=== PATIENT | female | born 1955 | race Caucasian/White ===

== ENCOUNTER 2018-10-12 07:28 | Emergency (ER) | payer BC, OTHER ==
--- NOTE | 2018-10-12 07:48 | UC ---
Respiratory Complaint HPI - HPI Summary HPI Summary: Patient is 63 year old female , who present today to the urgent care with congestion and headache for past 2 months intermittently . Worse that her headache is around her ears and she feels fullness in her ears bilaterally. Feels her head is throbbin when laying down - states started 2 months ago, goes away after being awake for 2 hours, comes back at night, when trying to sleep. Pt states has gotten progressively worse. Now she has noticed that there is associated shortness of breath and reports cough productive of some phlegm intermittently Denies any fever, chills, chest pain. Denies any abdominal pain , nausea or vomiting , diarrhea or constipation. She reports that she has a history of asthma and bronchitis in the past but she does not take any inhalers Also reports that there is swelling or mass on the left lower aspect of her neck that has been going on there for 2 years. She feels that it has increased in size. But was evaluated by her primary care in past Patient tried over the counter medication decongestant with some relief - History of Current Complaint Stated Complaint: CONGESTION Time Seen by Provider: 10/12/18 07:47 Hx Obtained From: Patient - Allergies/Home Medications Allergies/Adverse Reactions: Allergies Allergy/AdvReac Type Severity Reaction Status Date / Time No Known Allergies Allergy Verified 10/12/18 07:38 Home Medications: Home Medications NK [No Home Medications Reported] 10/12/18 [History Confirmed 10/12/18] PMH/Surg Hx/FS Hx/Imm Hx - Additional Past Medical History Additional PMH: Asthma, she does not take any inhalers Bronchitis Every day smoker- half to 1 pack per day Previously Healthy: Yes Review of Systems All Other Systems Reviewed And Are Negative: Yes Constitutional: Positive: Fatigue Skin: Positive: Negative Eyes: Positive: Negative ENT: Positive: Ear Ache, Sinus Congestion, Sinus Pain/Tenderness Respiratory: Positive: Shortness Of Breath - Intermittent, Cough - Intermittently productive Cardiovascular: Positive: Negative Gastrointestinal: Positive: Negative Genitourinary: Positive: Negative Motor: Positive: Negative Neurovascular: Positive: Negative Neurological: Positive: Headache - Especially when she lays down Psychological: Positive: Negative Is Patient Immunocompromised?: No Physical Exam - Summary Physical Exam Summary: Physical Exam: Const: Appears well. No signs of apparent distress present. Alert and oriented x 3. Musculo: Walks with a normal gait. Head/Face: Atraumatic, normocephalic on inspection. Eyes: EOMI and PERRLA in both eyes. Conjunctivae clear. No discharge noted ENT: Hearing normal, TM normal appearing bilaterally . No pharyngeal erythema or exudates No lymphadenopathy noted. Tenderness is noted at the left maxillary sinus. There is approximately 5 cm into 5 cm size supraclavicular mass , nonerythematous nontender on palpation. Respiratory: Decreased air entry in bilateral lower lobes. Air entry appropriate in the upper / middle lobes bilaterally. Respirations are unlabored. Lungs no wheezing , rhonchi or rales noted . CVS: Regular rate and Rhythm, S1S2 normal , no murmurs identified. Extremities: Peripheral circulation is grossly normal. Pulses 2+ Abdomen : Soft non tender , nondistended , Bowel sounds present . No guarding , rebound tenderness or rigidity noted. Skin: No lesions or rash located on the upper extremities or on the lower extremities. Neuro: Cranial nerves II to XII intact, motor and sensory intact. DTR Intact bilaterally. Mood is normal. Affect is normal. Triage Information Reviewed: Yes Vital Signs Reviewed: Yes Diagnostic Evaluation - Radiology Radiology Interpretation Completed By: Radiologist - chest x-ray:HYPERINFLATION , CONSISTENT WITH COPD. NO ACTIVE CARDIOPULMONARY DISEASE. Respiratory Course/Dx - Course Course Of Treatment: During the visit today, , on initial testing her pulse ox was at 85, she was put on 2 L of oxygen and it increased to 92% but was desatting to high 80s . She was given 1 neb treatment with albuterol and ipratropium and she felt slightly better but her oxygen saturation was 89% on 2 L. Chest x-ray done: HYPERINFLATION, CONSISTENT WITH COPD. NO ACTIVE CARDIOPULMONARY DISEASE. We increase it to 4 L, with her saturation at 97% So oxygen was decreased to 3 L at which her saturation was between 88-92. We discussed the findings and further plan. I recommended her to go to ER in ambulance given her need for oxygen and the risk for respiratory failure. She verbalizes understanding of his potential diagnosis and risks. I strongly advised her to be transferred via ambulance to ER and further evaluation and treatment there. She refused to go to the ED via ambulance but her will drive her promptly to ER . Patient signed out AMA. Report called to the ER provider , Dalila at [facility], advised provider of the history, physical examination, and duration of illness and imaging so far and the need for definitive management. Her vitals were stable at the time of discharge. Patient expressed understanding . - Differential Dx/Diagnosis Provider Diagnosis: COPD exacerbation, Sinusitis, Mass in neck Discharge - Sign-Out/Discharge Documenting (check all that apply): Patient Departure All imaging exams completed and their final reports reviewed: Yes - Discharge Plan Condition: Stable Disposition: HOME-RECOMMEND TO ED Patient Education Materials: COPD (Chronic Obstructive Pulmonary Disease) (ED) Referrals: Whit Ferguson MD [Primary Care Provider] - 1 Week Additional Instructions: Recommendation to go to ER for definitive management via ambulance but patient declined and her will drive her to the ER. She signed the AMA paperwork understanding certain risks and her diagnosis. Report was called to ER Patient's blood pressure slightly high in Urgent care today , plan follow up with PCP for better control - Billing Disposition and Condition Condition: STABLE Disposition: Home-Recommend to ED
[2018-10-12 07:58] VITALS: BP 182/93
[2018-10-12] MEDS ORDERED: Albuterol/Ipratropium NEB.SOL* Albuterol 2.5 MG/Ipratropium 0.5 MG 3 ML INH ONE (07:59)
[2018-10-12] MEDS ORDERED: Albuterol (2.5 MG) 0.5 % CONC 2.5 MG/0.5 ML NEB.SOLN (ICU and ED only) INH ONE (08:03)
[2018-10-12] MEDS ORDERED: Ipratropium 0.5MG/2.5ML NEB* 0.5 MG/2.5 ML NEB.SOLN INH ONE (08:04)
[2018-10-12] MEDS ORDERED: Albuterol 2.5 MG/3 ML NEB.SOL* (0.083%) INH ONE ×2 (08:08→08:15)
== END 2018-10-12 09:15 | disposition home health service (06) ==
LOC: UCEAST 07:28
DX: J44.1 Chronic obstructive pulmonary disease with (acute) exacerbation (principal); R22.1 Localized swelling, mass and lump, neck; F17.210 Nicotine dependence, cigarettes, uncomplicated; J45.909 Unspecified asthma, uncomplicated; J32.9 Chronic sinusitis, unspecified
CPT/HCPCS: 71046; 99202; G0463; J7611

== ENCOUNTER 2018-10-12 09:34 | Observation (INO) | payer OTHER ==
--- NOTE | 2018-10-12 09:52 | ED ---
Shortness of Breath - HPI Summary HPI Summary: Pt is a 63 y/o female who presents to the ED c/o SOB. She was sent from the for hypoxia and severe headache. A CXR performed there revealed hyperinflation, and her O2 sat was 87%. Pt was given oxygen and a nebulizer while at . Pt has had intermittent congestion, cough, sore throat, rhinorrhea, and sleep disturbance for the past 3 months. For the past 2 weeks, shes had a throbbing sensation in her head when lying down. Pt also c/o LE edema, but denies any CP or nausea. Recently the phlegm she coughs up has turned from clear to yellow. Pt smokes half to a full ppd. She has only had 2 cigarettes today so far. Pts BP while in room is 177/96, but she denies taking any BP medications. She hasn t been to her PCP in a while. PMHx asthma. - History of Current Complaint Chief Complaint: EDShortnessOfBreath Time Seen by Provider: 10/12/18 09:47 Hx Obtained From: Patient Onset/Duration: Gradual Onset, Lasting Weeks - 3 months, Worse Since Timing: Constant Aggrevating Factors: Recumbent Position Alleviating Factors: Oxygen Associated Signs & Symptoms: Cough (Productive), Nasal Congestion, Edema - Allergy/Home Medications Allergies/Adverse Reactions: Allergies Allergy/AdvReac Type Severity Reaction Status Date / Time No Known Allergies Allergy Verified 10/12/18 09:40 PMH/Surg Hx/FS Hx/Imm Hx Endocrine/Hematology History: Denies: Hx Diabetes Respiratory History: Reports: Hx Asthma, Other Respiratory Problems/Disorders - Bronchitis - Cancer History Hx Chemotherapy: No Hx Radiation Therapy: No - Surgical History Surgery Procedure, Year, and Place: tubal ligation Infectious Disease History: No Infectious Disease History: Denies: Traveled Outside the [place] in Last 30 Days - Family History Known Family History: Positive: Respiratory Disease - COPD - Social History Alcohol Use: None Hx Substance Use: No Substance Use Type: Reports: None Hx Tobacco Use: Yes Smoking Status (MU): Heavy Every Day Tobacco Smoker Amount Used/How Often: 1/2 - 1PPD Review of Systems Positive: Other - sleep disturbance Positive: Sore Throat, Nasal Discharge, Other - congestion Negative: Chest Pain Positive: Shortness Of Breath, Cough Negative: Nausea Positive: Edema Positive: Headache All Other Systems Reviewed And Are Negative: Yes Physical Exam - Summary Physical Exam Summary: Appearance: Well appearing, no pain distress Skin: warm, dry, reflects adequate perfusion Head/face: normal Eyes: EOMI, [place] ENT: mucous membranes moist, no nasal discharge Neck: supple, non-tender Respiratory: CTA, breath sounds diminished R>L Cardiovascular: RRR, pulses symmetrical, trace edema in LE Abdomen: non-tender, soft Bowel Sounds: present Musculoskeletal: normal, strength/ROM intact Neuro: normal, sensory motor intact, A&Ox3 Triage Information Reviewed: Yes Vital Signs On Initial Exam: Initial Vitals Temp Pulse Resp BP Pulse Ox 98.0 F 78 18 169/77 87 10/12/18 09:36 10/12/18 09:36 10/12/18 09:36 10/12/18 09:36 10/12/18 09:36 Vital Signs Reviewed: Yes Diagnostics - Vital Signs Vital Signs Temp Pulse Resp BP Pulse Ox 10/12/18 09:36 98.0 F 78 18 169/77 87 - Laboratory Result Diagrams: 10/12/18 10:03 10/12/18 10:03 Lab Statement: Any lab studies that have been ordered have been reviewed, and results considered in the medical decision making process. - EKG 9:57 Cardiac Rate: NL - 64 bpm EKG Rhythm: Sinus Rhythm ST Segment: Normal Summary of EKG Findings: Nl axis, nl intervals Course/Dx - Course Course Of Treatment: Nurse's note reviewed. Heavy smoker presents with hypoxia and productive cough. O2 sat kneader 87%. Patient was placed on oxygen and given multiple breathing treatments. An ABG was drawn. X-ray was done in the urgent care which showed hyperinflation. The patient was started on IV antibiotics, steroids and admitted to the hospital for further evaluation and treatment. - Diagnoses Differential Diagnosis/HQI/PQRI: Positive: Bronchitis, COPD Exacerbation, Pneumonia Provider Diagnoses: Acute exacerbation of chronic obstructive pulmonary disease (COPD), Hypoxia, Tobacco abuse - Physician Notifications Discussed Care of Patient With: Jennifer Arambula Time Discussed With Above Provider: 11:05 Instructed by Provider To: Admit As Inpatient Discharge - Sign-Out/Discharge Documenting (check all that apply): Patient Departure - Admit - Discharge Plan Condition: Fair Disposition: ADMITTED TO [facility] - Billing Disposition and Condition Condition: FAIR Disposition: Admitted to [facility] - Attestation Statements Document Initiated by Kraigibabhay: Yes Documenting Scribe: Vee Duncan Provider For Whom Scribe is Documenting (Include Credential): Bob Leija MD Scribe Attestation: Vee Arora, scribed for Bob Leija MD on 10/12/18 at 1414. Scribe Documentation Reviewed: Yes Provider Attestation: The documentation as recorded by the Vee mcmullen accurately reflects the service I personally performed and the decisions made by , Bob Leija MD Status of Scribe Document: Viewed
[2018-10-12] MEDS ORDERED: NS 0.9% 1000 ML* 1,000 ML IV ONE (09:53)
[2018-10-12] MEDS ORDERED: Levofloxacin 750 MG IVPREMIX(* 750 MG/150 ML BAG IVPB ONE (09:54)
[2018-10-12] MEDS ORDERED: Albuterol/Ipratropium NEB.SOL* Albuterol 2.5 MG/Ipratropium 0.5 MG 3 ML INH ONE (09:54)
[2018-10-12] MEDS ORDERED: methylPREDNISolone 125 MG* 2 ML VIAL IV ONE (09:54)
[2018-10-12 10:21] LABS: ABS Basophils 0 10^3/ul (0-0.2); ABS Eosinophils 0 10^3/ul (0-0.6); ABS Lymphocytes 1.5 10^3/ul (1.0-4.8); ABS Monocytes 0.5 10^3/ul (0-0.8); ABS Neutrophils 4.2 10^3/ul (1.5-7.7); ABS Nucleated RBC 0 10^3/ul; Eosinophil % 0.5 %; Hematocrit 46 % (35-47); Hemoglobin 15.2 g/dl (12.0-16.0); Lymphocyte % 24.5 %; Mean Corpuscular HGB Conc 33 g/dl (31-36); Mean Corpuscular Hemoglobin 31 pg (27-31); Mean Corpuscular Volume 93 fL (80-97); Mean Platelet Volume 7.5 fL (7.4-10.4); Nucleated Red Blood Cells % 0; Platelet Count 237 10^3/ul (150-450); Red Blood Count 4.88 10^6/ul (4.00-5.40); Red Cell Distribution Width 14 % (10.5-15); White Blood Count 6.3 10^3/ul (3.5-10.8)
[2018-10-12 10:34] LABS: EGFR Non-African American 97.2 (>60)
[2018-10-12 10:39] LABS: INR 0.94 (0.77-1.02)
[2018-10-12] MEDS ORDERED: Acetaminophen TAB* 325 MG PO PRN (12:02)
[2018-10-12] MEDS ORDERED: Al Hydrox/Mg Hydrox/Simet LIQ* 30 ML UDC PO PRN (12:02)
[2018-10-12] MEDS ORDERED: Albuterol 2.5 MG/3 ML NEB.SOL* (0.083%) INH PRN (12:02)
[2018-10-12] MEDS ORDERED: Albuterol HFA INHALER* 8 gm MDI INH PRN (12:07)
[2018-10-12] MEDS ORDERED: Enoxaparin(*) 40 MG/0.4 ML SYR SUBCUT SCH (13:00)
[2018-10-12] MEDS ORDERED: Iohexol 350* (CONTRAST) 500 ML MDV IV ONE (13:08)
--- NOTE | 2018-10-12 14:20 | HP ---
CC: Dr. Whit Ferguson * HISTORY AND PHYSICAL: DATE OF ADMISSION: 10/12/18 PROVIDER: Jessica Cortez NP. ATTENDING PHYSICIAN WHILE IN THE HOSPITAL: Dr. Jennifer Arambula * (dictated by Jessica Cortez NP). CHIEF COMPLAINT: 1. Shortness of breath. 2. Cough. HISTORY OF PRESENT ILLNESS: Ms. Reynolds is a 63-year-old female with no significant past medical history, who was transferred from Urgent Care due to shortness of breath and hypoxia. The patient was found to have O2 saturation at Urgent Care of 87%, so she was sent to the emergency room for further evaluation of her hypoxia. The patient reports that she has been experiencing shortness of breath on and off since May. She reports that while lying down on her back, she has increased shortness of breath and palpitations in her chest. She does report that she wakes with palpitations during the night and that sitting up for a couple of hours improves her breathing and symptoms. Patient reports that she usually sleeps on 1 pillow at night and lately has been sleeping on 2 pillows, but reports that this is not helping her symptoms. She also reports that she has been having heart and cold chills on and off for a while, unable to determine the amount of time. She does report that she has a chronic cough with clear secretions, but recently has changed to yellow and increased amount of secretions. Due to her increased shortness of breath, she presented to Urgent Care and then was transferred to the emergency room after she was found to be hypoxic. While in the emergency room, she had routine lab work drawn. She was given Solu - Medrol 125 and Levaquin 750 mg and breathing treatment. Patient reports that after receiving these treatments, her breathing feels better and she feels less short of breath. Due to her hypoxia and shortness of breath, we were asked to see and evaluate her for admission. PAST MEDICAL HISTORY: Significant for chronic tobacco abuse. PAST SURGICAL HISTORY: Tubal ligation. HOME MEDICATIONS: 1. She takes fish oil. 2. Cranberry. 3. Calcium. 4. Probiotic. ALLERGIES TO MEDICATIONS: None. FAMILY HISTORY: Mother with a history of heart disease, unknown type. No reported history of diabetes in the family. Father with lung cancer, brother with lung and bladder cancer. SOCIAL HISTORY: The patient smokes between a half to 3-1/4-pack a day for 40- plus years. She denies any alcohol use. Does report daily marijuana use. She has . She lives with her . Surrogate decision maker is her . She is a full code. REVIEW OF SYSTEMS: She does report hot and cold chills. She denies any loss of appetite. Denies chest pain. She does report heart palpitations. She does report dependent edema after working all day. Denies any chest pain. Does report cough that is now productive with yellow secretions and increased from her baseline. Denies any hemoptysis. She does report increased shortness of breath. Denies any nausea, vomiting or diarrhea. Denies any abdominal pain. Denies any gross hematuria or dysuria. Denies any focal weakness or sensory loss. Denies any visual complaints. Denies any dysphagia. Denies any arthralgias or myalgias. Denies any rashes, lesions, psychosis or anxiety. PHYSICAL EXAMINATION GENERAL: At this time, Ms. Reynolds is sitting on the stretcher in the emergency room. She appears to be in mild respiratory distress. Her color is pink. She is alert and oriented x3. HEENT: Head is atraumatic, normocephalic. Eyes: EOMs are intact. Sclerae are anicteric and not pale. Oral mucosa appear to be moist. NECK: Supple. LUNGS: Diminished throughout bilaterally, with a few scattered expiratory wheezes. CARDIAC: S1 and S2. Regular rate and rhythm. No murmurs, rubs or gallops. ABDOMEN: Soft and nontender. Bowel sounds are present x4. EXTREMITIES: Pedal pulses are +2 bilaterally. There is no pitting edema noted to the lower extremities. No calf tenderness bilaterally. NEUROLOGIC: She is awake, alert, and oriented x3. Speech is clear. Thought process is intact. No gross focal deficits noted. SKIN: Intact. LABORATORY DATA AND DIAGNOSTIC STUDIES: WBCs are 6.3, RBCs 4.88, hemoglobin 15.2, hematocrit was 46, platelet count was 237. INR was 0.94. ABG: pH of 7.35, pCO2 was 61, pO2 was 77, HCO3 was 29.1, O2 saturation 96%. Sodium was 140 , potassium 4.0, chloride 102, carbon dioxide was 34, anion gap was 4, BUN 13, creatinine 0.62. Glucose 139, lactic acid 0.9, calcium 9.0, AST was 22, ALT was 58. C- reactive protein was 30.43. BNP 154. Chest x-ray: Hyperinflation consistent with COPD, no active cardiopulmonary disease. She had an electrocardiogram, which showed sinus rhythm at a rate of 64. ASSESSMENT AND PLAN: Ms. Reynolds is a 63-year-old female with no significant past medical history, except for chronic tobacco use, who presented to the emergency room as a transfer from Urgent Care for hypoxia, with O2 saturation of 87% on room air. We were asked to see and evaluate her for admission due to her increased shortness of breath and hypoxia. 1. Acute hypoxic respiratory failure: Patient likely has underlying undiagnosed chronic obstructive pulmonary disease. At this time, I will place her on Levaquin 750 mg IV q.24 hours, prednisone 40 mg p.o. daily x5 days, albuterol nebs as needed for shortness of breath and wheezing, Dulera inhaler 1 puff twice daily, albuterol HFA inhaler as needed for shortness of breath and wheezing. I will get a CTA of the chest to rule out pulmonary embolism as the patient reports that she is unable to lay flat in the bed and does awake with palpitations. At this time, I suspect that her acute hypoxic respiratory failure is related to chronic obstructive pulmonary disease exacerbation that has been undiagnosed. I would recommend that she follow up as outpatient with Pulmonology for testing to confirm chronic obstructive pulmonary disease diagnosis. 2. FEN: She can have a regular diet. 3. Code status: She is a full code. 4. DVT prophylaxis: I will place her on Lovenox subcu daily. 5. Disposition: She will be placed on inpatient observation. TIME SPENT: Time spent on this admission was 60 minutes, greater than half of that time was spent obtaining my history and physical, the other half of the time was spent performing my physical exam and going over my plan of care and implementing my plan of care. I have discussed with my attending, Dr. Jennifer Arambula, and she is in agreement with my plan. JESSICA CORTEZ, VEGETABLE FARMING SUPERVISOR [id number]/[facility] #: [id number] DESIRE
[2018-10-12] MEDS: Mometasone/Formoter 100/5 MDI INH SCH (20:09)
[2018-10-13] MEDS: Mometasone/Formoter 100/5 MDI INH SCH (07:47)
[2018-10-13] MEDS ORDERED: predniSONE TAB* 20 MG PO SCH (09:00)
[2018-10-13] MEDS ORDERED: Levofloxacin 750 MG IVPREMIX(* 750 MG/150 ML BAG IVPB SCH (11:00)
--- NOTE | 2018-10-13 11:50 | PN ---
Subjective Date of Service: 10/13/18 Interval History: Ms. Reynolds reports that she is tired but that she feels much better than when she arrived. She denies any current complaint and is eager for discharge to home. Objective Active Medications: Acetaminophen (Tylenol Tab*) 650 mg PO Q4H PRN Al Hydrox/Mg Hydrox/Simethicone (Maalox Plus*) 30 ml PO Q6H PRN Albuterol (Ventolin 2.5 Mg/3 Ml Neb.Umm*) 2.5 mg INH [id number] AWAKE PRN Albuterol (Ventolin Hfa Inhaler*) 2 puff INH Q4H PRN Enoxaparin Sodium (Lovenox(*)) 40 mg SUBCUT Q24H CAROLYNN Levofloxacin/Dextrose (Levaquin 750 Mg Ivpremix(*)) 750 mg in 150 mls @ 100 mls /hr IVPB Q24H CAROLYNN Mometasone Furoate/Formoterol Fumar (Dulera 100/5 Mdi*) 2 puff INH BID CAROLYNN Prednisone (Deltasone Tab*) 40 mg PO DAILY CAROLYNN Vital Signs: Temp Pulse Resp BP Pulse Ox 98.5 F 60 18 146/68 95 10/13/18 08:05 10/13/18 08:05 10/13/18 08:05 10/13/18 08:05 10/13/18 08:05 Oxygen Devices in Use Now: Nasal Cannula Appearance: Female sitting up in chair in NAD Eyes: No Scleral Icterus Ears/Nose/Mouth/Throat: Mucous Membranes Moist Neck: Trachea Midline Respiratory: Symmetrical Chest Expansion and Respiratory Effort, Clear to Auscultation Cardiovascular: NL Sounds; No Murmurs; No JVD, No Edema Abdominal: NL Sounds; No Tenderness; No Distention Extremities: No Edema Skin: No Rash or Ulcers Neurological: Alert and Oriented x 3, NL Muscle Strength and Tone Nutrition: Taking PO's Result Diagrams: 10/12/18 10:03 10/12/18 10:03 Microbiology and Other Data: Vital Signs: Temp Pulse Resp BP Pulse Ox 98.5 F 60 18 146/68 95 10/13/18 08:05 10/13/18 08:05 10/13/18 08:05 10/13/18 08:05 10/13/18 08:05 Assess/Plan/Problems-Billing Assessment: Ms. Reynolds is a 63 yo F with a PMH of chronic tobacco use who was admitted on with a COPD exacerbation. - Patient Problems (1) COPD exacerbation Comment: - With acute hypoxic respiratory failure, 87% SpO2 on room air - No evidence of pneumonia on CT chest, though evidence of pulmonary hypertension. - Plan to continue prednisone and nebulizers for COPD exacerbation - Recommend close follow up with PCP or Dr. Olivera for further evaluation at discharge (2) DVT prophylaxis Comment: - Lovenox (3) Full code status Comment: Status and Disposition: OBV. Discharge to home.
[2018-10-13 13:40] VITALS: BP 155/67
--- NOTE | 2018-10-13 14:24 | DS ---
CC: Dr. Ferguson * DISCHARGE SUMMARY: DATE OF ADMISSION: 10/12/18 DATE OF DISCHARGE: 10/13/18 ATTENDING PHYSICIAN: Nan Ellis MD * (dictation provided by Didi Mcmillan NP ). PRIMARY CARE PHYSICIAN: Dr. Ferguson PRIMARY DIAGNOSIS: Chronic obstructive pulmonary disease exacerbation. SECONDARY DIAGNOSIS: intermediate frame tender tobacco abuse. MEDICATIONS AT THE TIME OF DISCHARGE: 1. Prednisone 40 mg via taper. 2. Spiriva 1 cap inhaled daily. 3. Mometasone/formoterol 100/5, two puffs inhaled b.i.d. 4. Albuterol inhaler 2 puffs inhaled q.4 hours p.r.n. HOSPITAL COURSE: Ms. Reynolds is a 63-year-old female with past medical history of chcf smoking, who presented to the hospital on 10/12/18 with concern for shortness of breath and palpitations. Please see the dictated H and P by Jessica Cortez NP, for complete details. The patient reported that she had shortness of breath and cough. She was evaluated at [facility] and found to have an O2 saturation of 87% on room air and therefore, was brought to the emergency room for evaluation. She reported that she had had palpitations and that she had had most trouble when trying to sleep at night. In the emergency room, the patient was suspected to have a COPD exacerbation based on her physical examination and otherwise negative workup. Her labs were normal. She had no leukocytosis. She had a CTA of the chest, showed no pulmonary embolism, but did show enlargement of the pulmonary artery compared to the aorta, consistent with pulmonary arterial hypertension. Ms. Reynolds was treated with steroids and nebulizers as well as antibiotics while inpatient. With this she has had good resolution of her symptoms and feels ready to return home. Her lungs are clear to auscultation on examination. She does continue to require 2 L of oxygen with ambulation and, therefore, is being provided with that now at discharge. I have spoken to Ms. Reynolds about smoking cessation and she states in intension to do so. She states that she used nicotine replacement therapy in the past, which has been unsuccessful, and that she does not want to try that again. She states that she will try to manage it on her own. I have encouraged her to follow up with Dr. Ferguson for assistance with smoking cessation and I have also strongly encouraged her to follow up with Dr. Olivera regarding full evaluation for COPD and possible pulmonary hypertension, including pulmonary function testing and possible echocardiogram. Ms. Reynolds is medically stable for discharge to home. DISPOSITION: Home. DIET: Regular. ACTIVITY: As tolerated. FOLLOWUP PLANS: 1. Please follow up with Dr. Ferguson in the next week. 2. Please follow up with Dr. Olivera within the next 2 to 3 weeks, if possible, regarding full evaluation for her underlying lung disease and likely echocardiogram given concern for pulmonary hypertension on CTA. TIME SPENT: Approximately 60 minutes were spent on the discharge of this patient, more than half the time was spent with the patient at the bedside reviewing the events leading up to and during this hospitalization, performing physical examination, reviewing my plan of care. DIDI MCMILLAN NP [id number]/[facility] #: [id number] DESIRE
== END 2018-10-13 14:32 | disposition home or self-care (01) ==
LOC: ED 09:34 → MEDTELE 12:02
PROVIDERS: ADMIT Internal Medicine; ATTEND Internal Medicine
DX: J44.1 Chronic obstructive pulmonary disease with (acute) exacerbation (principal); F17.210 Nicotine dependence, cigarettes, uncomplicated; R06.02 Shortness of breath; R05 Cough; R09.81 Nasal congestion; R60.0 Localized edema; J02.9 Acute pharyngitis, unspecified
CPT/HCPCS: 36415; 71275; 80053; 82803; 83605; 83880; 84484; 85025; 85610; 86140; 87040; 87070; 87205; 93005; 94640; 96365; 96366; 96372; 99283; 99406; A9270-GY; G0378; J1650; J2930; J7512; Q9967